=== PATIENT | male | born 1955 | race Caucasian/White ===

== ENCOUNTER 2020-06-24 09:01 | Day surgery (SDC) | payer MEDICARE, OTHER ==
[~2020-06-24 09:01] MED LIST: Lactated Ringers 1,000 ML IV SCH; Lidocaine 1%/Sod Bicarbonate in NS 8.4% 1 ML Syringe IDERM PRN; Sodium Chloride 0.9% 10 ML Syringe FLUSH PRN
--- NOTE | 2020-06-24 09:37 | PCM.PREANE ---
Preanesthetic Assessment - Procedure Proposed Procedure: Colonoscopy - Anesthesia/Transfusion/Family Hx Anesthesia History: Prior Anesthesia Without Reaction - Review of Systems General: No Symptoms Pulmonary: No Symptoms Cardiovascular: No Symptoms Gastrointestinal: No Symptoms Neurological: Other Other: Reports: None - Physical Assessment NPO Status Date: 06/23/20 NPO Status Time: 21:00 Height: 1.69 m Weight: 137.439 kg ASA Class: 3 Mental Status: Alert & Oriented x3 Airway Class: Mallampati = 3 Dentition: Reports: Normal Dentition Thyro-Mental Finger Breadths: 3 Mouth Opening Finger Breadths: 3 ROM/Head Extension: Full Lungs: Clear to Auscultation, Normal Respiratory Effort Cardiovascular: Regular Rate, Regular Rhythm - Lab Values: Laboratory Last Values POC Glucose 176 mg/dL (80-115) H 06/24/20 09:16 - Allergies Allergies/Adverse Reactions: Allergies Allergy/AdvReac Type Severity Reaction Status Date / Time No Known Allergies Allergy Verified 06/23/20 15:01 - Acknowledgements Anesthesia Type Planned: MAC Pt an Appropriate Candidate for the Planned Anesthesia: Yes Alternatives and Risks of Anesthesia Discussed w Pt/Guardian: Yes Pt/Guardian Understands and Agrees with Anesthesia Plan: Yes PreAnesthesia Questionnaire HEENT History: Reports: Cataract, Other (See Below) Other HEENT History: BLIND Cardiovascular History: Reports: High Cholesterol, Hypertension Respiratory History: Reports: Sleep Apnea (uses CPAP) Gastrointestinal History: Reports: None Genitourinary History: Reports: None PHYSICAL EDUCATION INSTRUCTOR History: Reports: None Neurological History: Reports: Other (See Below) Other Neuro History: MENINGIOMA, brain tumor Psychiatric History: Reports: Anxiety Endocrine/Metabolic History: Reports: Diabetes, Type II Oncologic (Cancer) History: Reports: Other (See Below) (s/p brain tumor) - Infectious Disease History Infectious Disease History: Reports: None - Past Surgical History Head Surgeries/Procedures: Reports: None HEENT Surgical History: Reports: None Cardiovascular Surgical History: Reports: None Respiratory Surgical History: Reports: None GI Surgical History: Reports: Colon Female Surgical History: Reports: None Male Surgical History: Reports: None Endocrine Surgical History: Reports: None Neurological Surgical History: Reports: Other (See Below) Other Neurological Surgeries/Procedures: brain surgery Musculoskeletal Surgical History: Reports: Arthroscopic Knee Oncologic Surgical History: Reports: None Dermatological Surgical History: Reports: None - SUBSTANCE USE Tobacco Use Status *Q: Never Tobacco User Days Per Week of Alcohol Use: 3 Number of Drinks Per Day: 1 Total Drinks Per Week: 3 Recreational Drug Use History: No - HOME MEDS Home Medications: Home Meds Venlafaxine HCl [Venlafaxine ER] 150 mg DAILY 03/14/14 [History] ClonazePAM [KlonoPIN] 0.5 mg PO TID PRN 06/23/20 [History] Empagliflozin [Jardiance] 25 mg PO DAILY 06/23/20 [History] Losartan [Cozaar] 50 mg PO DAILY 06/23/20 [History] Multivitamin 1 each PO DAILY 06/23/20 [History] Rosuvastatin Calcium [Crestor] 40 mg PO DAILY 06/23/20 [History] Spironolactone [Aldactone] 25 mg PO DAILY 06/23/20 [History] amLODIPine [Norvasc] 5 mg PO DAILY 06/23/20 [History] hydroCHLOROthiazide [Hydrochlorothiazide] 25 mg PO DAILY 06/23/20 [History] metFORMIN [Glucophage] 500 mg PO BID 06/23/20 [History] - CURRENT (IN HOUSE) MEDS Current Meds: Current Medications Lactated Ringer's (Ringers, Lactated) 1,000 mls @ 125 mls/hr IV ASDIRECTED TETE Stop: 06/24/20 23:00 Lidocaine/Sodium Bicarbonate (Buffered Lidocaine 1% In Ns 8.4%) 0.25 ml IDERM ONETIME PRN PRN Reason: Prior to IV Start Stop: 06/24/20 18:00 Sodium Chloride (Saline Flush) 10 ml FLUSH ASDIRECTED PRN PRN Reason: Keep Vein Open Stop: 06/24/20 18:00
[2020-06-24] MEDS ORDERED: Propofol 200 MG/20 ML SDV ONE (09:53)
[2020-06-24] MEDS ORDERED: fentaNYL 100 MCG/2 ML SDV ONE (09:54)
[2020-06-24] MEDS ORDERED: Lidocaine 1% 6 ML ONE (09:54)
[2020-06-24] MEDS ORDERED: Glycopyrrolate 0.2 MG/ML SDV ONE (10:32)
--- NOTE | 2020-06-24 11:05 | PCM.OPNOTE ---
- General Post-Op/Procedure Note Date of Surgery/Procedure: 06/24/20 Operative Procedure(s): colonoscopy Findings: 1. Cecal polyp 2. Hepatic flexure polyp 3. Transverse colon polyp 4. Internal hemorrhoids Pre Op Diagnosis: Rectal bleeding Post-Op Diagnosis: same Anesthesia Technique: MAC Primary Surgeon: Debbie Peraza Anesthesia Provider: Blair Limon Pathology: 1. Cecal polyp 2. Hepatic flexure polyp 2. Transverse colon polyp Fluid Replacement, Intraop: 1,000 Output, Urine Amount: 0 EBL in mLs: 0 Complications: none apparent Condition: Good
--- NOTE | 2020-06-24 11:08 | PCM.PRNOTE ---
- Free Text/Narrative Note: Operative Report Date of Surgery/Procedure: June 24, 2020 Operative Procedure: Colonoscopy to cecum with biopsy Pre Op Diagnosis: Rectal bleeding Post-Op Diagnosis: same Surgeon: Debbie Peraza Anesthesia Technique: MAC Anesthesia Provider: Blair Limon CRNA IV Fluid Replacement, Intraop: 1000cc Output, Urine Amount: 0cc EBL : 0cc Findings: 1. Cecal polyp 2. Hepatic flexure polyp 3. Transverse colon polyp 4. Internal hemorrhoids Specimens: 1. Cecal polyp 2. Hepatic flexure polyp 3. Transverse colon polyp Indication: The patient is a 64 year-old gentleman who presented to the outpatient clinic. The patient has a history of rectal bleeding. We discussed the procedure of a screening colonoscopy including the polypectomy and biopsy. Risks of bleeding and perforation were discussed, the patient understood and wished to proceed. Written and consent was obtained Description of the procedure: The patient was brought to the endoscopy suite and placed in the left lateral decubitus position. Appropriate monitors were applied. The patient was given MAC anesthesia. An anorectal examination was performed, revealing no external abnormality. The scope was placed into the rectum and advanced to cecum with no difficulty. The patients cecum was entered, and the ileocecal valve and appe ndiceal orifice were identified and normal. At this point, the scope was withdrawn, paying careful attention to the mucosa. The patient had good bowel prep, allowing for visualization of 85-90% of the mucosa. A 2mm cecal polyp was noted and removed with a jumbo cold biopsy forceps. A 5mm hepatic flexure polyp was noted and removed with a jumbo cold biopsy forceps. An additional 3mm flat polyp was seen in the transverse colon and removed with a jumbo cold biopsy forceps. In the rectum, the scope was retroflexed and no abnormalities were noted, except for some hemorrhoidal tissue. The scope was placed back in the lumen and the excess air was aspirated. The patient tolerated the procedure well. Complications: none apparent Condition: Good, transported to PACU in stable condition Debbie Peraza MD General Surgery
--- NOTE | 2020-06-24 11:10 | PCM48HPAN ---
Post Anesthesia Note - EVALUATION WITHIN 48HRS OF ANESTHETIC Vital Signs in Normal Range: Yes Patient Participated in Evaluation: Yes Respiratory Function Stable: Yes Airway Patent: Yes Cardiovascular Function Stable: Yes Hydration Status Stable: Yes Pain Control Satisfactory: Yes Nausea and Vomiting Control Satisfactory: Yes Mental Status Recovered: Yes Vital Signs: Last Vital Signs Temp 97.4 F 06/24/20 09:20 Pulse 69 06/24/20 09:20 Resp 20 06/24/20 09:20 BP 138/81 06/24/20 09:20 Pulse Ox 90 L 06/24/20 09:20
== END 2020-06-24 12:00 | disposition home or self-care (01) ==
LOC: JD.SDS 09:01
PROVIDERS: ATTEND Surgery
DX: D12.0 Benign neoplasm of cecum (principal); D12.3 Benign neoplasm of transverse colon; K64.9 Unspecified hemorrhoids; I10 Essential (primary) hypertension; E11.9 Type 2 diabetes mellitus without complications; E78.2 Mixed hyperlipidemia; F41.1 Generalized anxiety disorder; G47.33 Obstructive sleep apnea (adult) (pediatric); Z98.890 Other specified postprocedural states; Z79.899 Other long term (current) drug therapy; Z79.82 Long term (current) use of aspirin; Z79.84 Long term (current) use of oral hypoglycemic drugs; Z86.73 Personal history of transient ischemic attack (TIA), and cerebral infarction without residual deficits
CPT/HCPCS: 45380; 82962; J2001; J2704; J3010; J3490; J7120; 00812